=== PATIENT | male | born 1965 | race Caucasian/White ===

== ENCOUNTER 2024-10-21 13:52 | Emergency (ER) | payer BC ==
[2024-10-21 14:21] VITALS: TEMP 98.5
--- NOTE | 2024-10-21 14:34 | ED ---
Recheck HPI - General Source: patient Mode of arrival: EMS Limitations: no limitations <RobertAllegra - Last Filed: 10/21/24 19:03> <Chaim Castañeda - Last Filed: 10/23/24 12:11> - General Chief Complaint: Recheck/Abnormal Lab/Rx Stated Complaint: abn labs, dizziness - History of Present Illness Initial Comments: Patient is a 59-year-old male with history of hypertension who was brought in by EMS for high blood pressure. Patient states that started at work today. Patient reports he takes 20 mg of amlodipine, 12.5 mg of hydrochlorothiazide and 300 mg of irbesartan daily. Patient states he took his medications this morning. Currently, patient endorsing some nausea. Patient denies any vision changes or seeing spots. Patient denies chest pain, shortness of breath, vomiting, diarrhea, or abdominal pain. (Allegra Jones) - Related Data Allergies Allergy/AdvReac Type Severity Reaction Status Date / Time No Known Allergies Allergy Verified 10/21/24 14:21 Review of Systems ROS Other: All systems not noted in ROS Statement are negative. Constitutional: Denies: fever, chills Respiratory: Denies: cough, dyspnea Cardiovascular: Denies: chest pain Gastrointestinal: Reports: nausea. Denies: vomiting Neurological: Denies: numbness, paresthesias, confusion <Allegra Jones - Last Filed: 10/21/24 19:03> ROS Other: All systems not noted in ROS Statement are negative. <Chaim Castañeda - Last Filed: 10/23/24 12:11> ROS Statement: Those systems with pertinent positive or pertinent negative responses have been documented in the HPI. Past Medical History Past Medical History: Hypertension Past Surgical History: Orthopedic Surgery Past Psychological History: No Psychological Hx Reported Smoking Status: Former smoker Past Alcohol Use History: Occasional Past Drug Use History: None Reported <Allegra Jones - Last Filed: 10/21/24 19:03> General Exam Limitations: no limitations <Allegra Jones - Last Filed: 10/21/24 19:03> Course Vital Signs 10/21/24 10/21/24 10/21/24 14:15 16:32 18:47 Temperature 98.5 F Pulse Rate 99 88 Respiratory 22 18 Rate Blood Pressure 156/99 145/99 150/96 O2 Sat by Pulse 98 96 Oximetry 10/21/24 19:05 Temperature Pulse Rate 88 Respiratory 18 Rate Blood Pressure 150/96 O2 Sat by Pulse 96 Oximetry Medical Decision Making - Lab Data Result diagrams: 10/21/24 14:27 10/21/24 14:27 <RobertAllegra - Last Filed: 10/21/24 19:03> - Lab Data Result diagrams: 10/21/24 14:27 10/21/24 14:27 <Chaim Castañeda - Last Filed: 10/23/24 12:11> - Medical Decision Making Was pt. sent in by a medical professional or institution (, PA, PLANER OPERATOR, urgent c are, hospital, or penitentiary...) When possible be specific @ -[No] Did you speak to anyone other than the patient for history (EMS, parent, family, police, friend...)? What history was obtained from this source @ -[No] Did you review nursing and triage notes (agree or disagree)? Why? @ -[I reviewed and agree with nursing and triage notes] Were old charts reviewed (outside hosp., previous admission, EMS record, old EKG, old radiological studies, urgent care reports/EKG's, penitentiary records)? Report findings @ -[No old charts were reviewed] Differential Diagnosis? @ -Differential Headache: Differential Dizziness: Benign paroxysmal positional Vertigo, Meniere's disease, otitis media, acoustic neuroma, vertebrobasilar insufficiency, cerebellar stroke, encephalitis, hypovolemic, arrhythmia, coronary artery syndrome, anemia, this is not meant to be an all-inclusive list EKG interpreted by me (3pts min.). @ -Sinus rhythm 97 bpm QTc of 392, no ST wave changes. X-rays interpreted by me (1pt min.). @ -[None done] CT interpreted by me (1pt min.). @ -[None done] U/S interpreted by me (1pt. min.). @ -[None done] What testing was considered but not performed or refused? (CT, X-rays, U/S, labs)? Why? @ -[None] What meds were considered but not given or refused? Why? @ -[None] Did you discuss the management of the patient with other professionals (professionals i.e. , PA, PLANER OPERATOR, lab, RT, psych nurse, community mental health social worker, reading recovery teacher, teacher, rating officer, manager case management)? Give summary @ -Case was discussed with the ED physician Dr. Castañeda. Was smoking cessation discussed for >3mins.? @ -[No] Was critical care preformed (if so, how long)? @ -[No] Were there social determinants of health that impacted care today? How? (Homelessness, low income, unemployed, alcoholism, drug addiction, tr ansportation, low edu. Level, literacy, decrease access to med. care, longterm, rehab)? @ -[No] Was there de-escalation of care discussed even if they declined (Discuss DNR or withdrawal of care, Hospice)? DNR status @ -[No] What co-morbidities impacted this encounter? (DM, HTN, Smoking, COPD, CAD, Canc er, CVA, ARF, Chemo, Hep., AIDS, mental health diagnosis, sleep apnea, morbid obesity)? @ -HTN Was patient admitted / discharged? Hospital course, mention meds given and route, prescriptions, significant lab abnormalities, going to OR and other pertinent info. @ -Patient will be discharged home self-care. Patient is to follow-up with PCP in 1 to 2 days. Undiagnosed new problem with uncertain prognosis? @ -[No] Drug Therapy requiring intensive monitoring for toxicity (Heparin, Nitro, Insulin, Cardizem)? @ -[No] Were any procedures done? @ -[No] Diagnosis/symptom? @ -[default] Acute, or Chronic, or Acute on Chronic? @ -[default] Uncomplicated (without systemic symptoms) or Complicated (systemic symptoms)? @ -[default] Side effects of treatment? @ -[No] Exacerbation, Progression, or Severe Exacerbation? @ -[No] Poses a threat to life or bodily function? How? (Chest pain, USA, PA, pneumonia, PE, COPD, DKA, ARF, appy, cholecystitis, CVA, Diverticulitis, Homicidal, Suicidal, threat to staff... and all critical care pts) @ -[No] (Allegra Jones) I personally saw the patient and performed the critical portion of the service. I discussed the patient care with the Dr. Jones. I directed management, care planning and final disposition of the patient. This includes, but not limited to, review of all lab work, radiological studies, EKG's, consultations, vital signs, and nursing notes. EKG interpreted by me (3pts min.) @As above X-Rays interpreted by me (1 pt min.) @None CT interpreted by me ( 1pt min.) @None U/S interpreted by me (1 pt min.) @None Critical care time of 0 minutes excluding separately billable procedures was spent in conjunction with critical care activities provided by the Resident and Attending simultaneously. I was present during no procedures for all critical portions of the procedure and as immediately available to furnish service during the entire procedure. (Chaim Castañeda) - Lab Data Lab Results 10/21/24 10/21/24 Range/Units 14:27 14:27 WBC 6.78 (4.50-10.00) 10*3/uL RBC 4.88 (4.40-5.60) 10*6/uL Hgb 15.4 (13.0-17.0) g/dL Hct 43.1 (39.6-50.0) % MCV 88.3 (80.0-97.0) fL MCH 31.6 (27.0-32.0) pg MCHC 35.7 (32.0-37.0) g/dL Plt Count 199 (140-440) 10*3/uL MPV 10.5 (9.5-12.2) fL Immature Gran % (Auto) 0.4 % Neutrophils % 77.3 % Lymphocytes % 14.9 % Monocytes % 6.6 % Eosinophils % 0.4 % Basophils % 0.4 % Immature Gran # 0.03 (0.00-0.04) 10*3/uL Neutrophils # 5.23 (1.80-7.70) 10*3/uL Lymphocytes # 1.01 (0.90-5.00) 10*3/uL Monocytes # 0.45 (0.20-1.00) 10*3/uL Eosinophils # 0.03 L (0.04-0.35) 10*3/uL Basophils # 0.03 (0.00-0.10) 10*3/uL Sodium 133 L (137-145) mmol/L Potassium 4.0 (3.5-5.1) mmol/L Chloride 100 (98-107) mmol/L Carbon Dioxide 26 (22-30) mmol/L Anion Gap 7 mmol/L BUN 17 (9-20) mg/dL Creatinine 1.02 (0.66-1.25) mg/dL Est GFR (CKD-EPI)AfAm >90 (>60 ml/min/1.73 sqM) Est GFR (CKD-EPI)NonAf 81 (>60 ml/min/1.73 sqM) Glucose 145 H (74-99) mg/dL Calcium 9.3 (8.4-10.2) mg/dL Magnesium 1.9 (1.6-2.3) mg/dL Total Bilirubin 1.1 (0.2-1.3) mg/dL AST 29 (17-59) U/L ALT 31 (4-49) U/L Alkaline Phosphatase 73 (38-126) U/L Total Protein 7.6 (6.3-8.2) g/dL Albumin 4.7 (3.5-5.0) g/dL Disposition Time of Disposition: 18:45 <Allegra Jones - Last Filed: 10/21/24 19:03> <Chaim Castañeda - Last Filed: 10/23/24 12:11> Clinical Impression: Hypertension Disposition: HOME SELF-CARE Condition: Fair Additional Instructions: Patient will be discharged home with self-care. Patient to follow-up with PCP in 1 to 2 days. Referrals: Jelani Agudelo [Primary Care Provider] - 1-2 days
[2024-10-21 18:01] LABS: Basophils # (A) 0.03 10*3/uL (0.00-0.10); Basophils % (A) 0.4 %; Eosinophils # (A) 0.03 10*3/uL (0.04-0.35); Eosinophils % (A) 0.4 %; HCT 43.1 % (39.6-50.0); HGB 15.4 g/dL (13.0-17.0); Lymphocytes # (A) 1.01 10*3/uL (0.90-5.00); Lymphocytes % (A) 14.9 %; MCH 31.6 pg (27.0-32.0); MCHC 35.7 g/dL (32.0-37.0); MCV 88.3 fL (80.0-97.0); Mean Platelet Volume 10.5 fL (9.5-12.2); Monocytes # (A) 0.45 10*3/uL (0.20-1.00); Monocytes % (A) 6.6 %; Neutrophils # (A) 5.23 10*3/uL (1.80-7.70); Neutrophils % (A) 77.3 %; Platelet Count 199 10*3/uL (140-440); RBC 4.88 10*6/uL (4.40-5.60); WBC 6.78 10*3/uL (4.50-10.00)
[2024-10-21 18:19] LABS: ALT 31 U/L (4-49); African American GFR (CKD) >90 (>60 ml/min/1.73 sqM); Albumin 4.7 g/dL (3.5-5.0); Anion Gap 7 mmol/L; Blood Urea Nitrogen 17 mg/dL (9-20); Calcium 9.3 mg/dL (8.4-10.2); Carbon Dioxide 26 mmol/L (22-30); Chloride 100 mmol/L (98-107); Glucose 145 mg/dL (74-99); Magnesium 1.9 mg/dL (1.6-2.3); Non-African American GFR(CKD) 81 (>60 ml/min/1.73 sqM); Sodium 133 mmol/L (137-145); Total Bilirubin 1.1 mg/dL (0.2-1.3); Total Protein 7.6 g/dL (6.3-8.2)
[2024-10-21 18:20] LABS: AST 29 U/L (17-59); Alkaline Phosphatase 73 U/L (38-126)
[2024-10-21 18:47] VITALS: BP 150/96; PULSE 88; RESP 18
== END 2024-10-21 19:12 | disposition home or self-care (01) ==
LOC: EC 13:52
DX: I10 Essential (primary) hypertension (principal); Z87.891 Personal history of nicotine dependence
CPT/HCPCS: 36415; 80053; 83735; 85025; 93005; 99284